=== PATIENT | male | born 1990 | race Caucasian/White ===

== ENCOUNTER 2019-04-08 01:54 | Emergency (ER) | payer OTHER ==
[~2019-04-08] VITALS: Ht 177.8 cm; Wt 104.3 kg
[2019-04-08 02:00] VITALS: Ht 177.8 cm; Wt 104.3 kg
[2019-04-08 03:04] LABS: BASOPHIL % 0.4 % (0-2); PLATELET COUNT 220 x10^3mcL (130-400)
[2019-04-08 03:58] LABS: AMPHETAMINE QUAL UR NONE DETECTED (See below)
[2019-04-08 04:33] LABS: ALBUMIN 4.1 g/dL (3.4-5.0); ALKALINE PHOSPHATASE 63 U/L (46-116); ALT/SGPT 61 U/L (16-63); AST/SGOT 19 U/L (15-37); BILIRUBIN TOTAL 0.39 mg/dL (0.20-1.00); CALCIUM 8.5 mg/dL (8.5-10.1); CARBON DIOXIDE 26.9 mmol/L (21-32); CHLORIDE SERUM 100 mmol/L (98-107); GFR1 > 60 mL/min; GLUCOSE SERUM 120 mg/dL (74-106); MAGNESIUM 2.1 mg/dL (1.8-2.4); POTASSIUM SERUM 3.4 mmol/L (3.5-5.1); SODIUM SERUM 137 mmol/L (136-145); TOTAL PROTEIN, SERUM 7.9 g/dL (6.4-8.2)
[2019-04-08 04:38] LABS: CHOLESTEROL 178 mg/dL (<200)
[2019-04-08 04:42] LABS: CHOLESTEROL/HDL RATIO 9.4; HDL CHOLESTEROL 19 mg/dL (40-60); TRIGLYCERIDES 864 mg/dL (<150)
[2019-04-08 05:00] LABS: T3 TOTAL 1.28 ng/mL
[2019-04-08 05:47] LABS: FREE T4 0.99 ng/dL (0.76-1.46); FREE THYROXINE INDEX 2.3 ug/dL (1.4-4.5); T4(THYROXINE) 6.4 ug/dL (4.7-13.3)
[2019-04-08 06:32] VITALS: BP 130/87
== END 2019-04-08 06:32 | disposition home or self-care (01) ==
LOC: ED 01:54
PROVIDERS: Emergency Medicine
DX: R07.89 Other chest pain (principal); F43.20 Adjustment disorder, unspecified; E78.1 Pure hyperglyceridemia
CPT/HCPCS: 36415; 84439; Q0092

== ENCOUNTER 2019-04-15 14:50 | Emergency (ER) | payer OTHER ==
[~2019-04-15] VITALS: Ht 177.8 cm; Wt 103.4 kg
[2019-04-15 14:59] VITALS: Ht 177.8 cm; Wt 103.4 kg
[2019-04-15 15:38] VITALS: BP 149/89
== END 2019-04-15 15:38 | disposition home or self-care (01) ==
LOC: ED 14:50
DX: I10 Essential (primary) hypertension (principal)